=== PATIENT | female | born 1995 | race Caucasian/White ===

== ENCOUNTER 2017-02-11 07:04 | Emergency (ER) | payer OTHER ==
[~2017-02-11] VITALS: Ht 167.6 cm; Wt 75.8 kg
[2017-02-11 07:09] VITALS: BP 124/59
== END 2017-02-11 08:03 | disposition home or self-care (01) ==
LOC: ED 07:04
DX: K59.00 Constipation, unspecified (principal)

== ENCOUNTER 2017-09-14 15:38 | Emergency (ER) | payer OTHER ==
[~2017-09-14] VITALS: Ht 167.6 cm; Wt 84.4 kg
[2017-09-14 15:44] VITALS: BP 155/69; Ht 167.6 cm; Wt 84.4 kg
== END 2017-09-14 18:06 | disposition home or self-care (01) ==
LOC: ED 15:38
DX: J02.9 Acute pharyngitis, unspecified (principal)

== ENCOUNTER 2020-05-03 00:40 | Emergency (ER) | payer OTHER ==
[~2020-05-03] VITALS: Ht 167.6 cm; Wt 82.6 kg
[2020-05-03 00:54] VITALS: Ht 167.6 cm; Wt 82.6 kg
[2020-05-03 03:23] VITALS: BP 135/90
== END 2020-05-03 03:23 | disposition home or self-care (01) ==
LOC: ED 00:40
DX: S09.8XXA Other specified injuries of head, initial encounter (principal); S09.92XA Unspecified injury of nose, initial encounter; Y04.8XXA Assault by other bodily force, initial encounter; Y93.89 Activity, other specified; Y92.89 Other specified places as the place of occurrence of the external cause; Y99.8 Other external cause status